=== PATIENT | female | born 1995 | race Caucasian/White ===

== ENCOUNTER 2020-07-29 18:39 | Emergency (ER) | payer OTHER ==
[~2020-07-29 18:39] MED LIST: ERYTHROMYCIN OP1 GM OP; FEOSOL325 MG PO; PRENATAL VITAM1 EAC3 PO; ZANTAC150 MG PO; ZITHROMAX250 MG PO
[2020-07-29] MEDS ORDERED: IBUPROFEN600 MG PO (19:55)
== END 2020-07-29 20:07 | disposition home or self-care (01) ==
LOC: ER1 18:39
DX: S80.11XA Contusion of right lower leg, initial encounter (principal); W10.9XXA Fall (on) (from) unspecified stairs and steps, initial encounter; Z88.2 Allergy status to sulfonamides
CPT/HCPCS: 73590; 99283